=== PATIENT | female | born 1960 | race Caucasian/White ===

== ENCOUNTER 2023-10-13 15:53 | Emergency (ER) | payer MEDICARE, SELFPAY ==
[~2023-10-13 15:53] MED LIST: Calcium Chloride 1 GM/10 ML Abboject SYRINGE ONE; EPINEPHrine 1 MG/10 ML Abboject SYRINGE ONE; NOREPINEPHRINE ONE; NS ONE; Sodium Bicarb 50 MEQ/50 ML Abboject 8.4% SYRINGE ONE
[2023-10-13 16:15] LABS: INR-International Normal Ratio 1.9; Prothrombin Time 21.8 sec (12.0-14.7)
[2023-10-13 16:17] LABS: PTT 109.3 sec (22.9-36.1)
[2023-10-13 16:18] LABS: Base Excess-Venous -20.9 mmol/L (-2.0 to 3.0); Bicarbonate (HCO3v) 12.6 mmol/L (22.0-28.0); CO2 Tension (PvCO2) 72.6 mmHg (42.0-51.0); Calcium, Ionized 1.16 mmol/L (1.15-1.33); Chloride 108 mmol/L (98-107); Hemoglobin - Calc 9.7 g/dL (12.0-16.0); Potassium 3.2 mmol/L (3.5-5.1); Sodium 140 mmol/L (138-145); T. Carbon Dioxide 14.8 mmol/L (22.0-28.0); vO2 Saturation-calc 92.5 % (60.0-85.0)
[2023-10-13 16:21] LABS: #Lymphocytes 3.8 thou/uL (1.20-3.40); #Neutrophils 3.2 thou/uL (1.40-6.50); %Basophils 1.7 % (0.0-1.0); %Eosinophils 1.6 % (0.0-10.0); %Lymphocytes 50.7 % (21.0-51.0); %Monocytes 3.4 % (0.0-10.0); %Neutrophils 42.6 % (42.0-75.0); Hematocrit 31.2 % (36.0-47.0); Hemoglobin 9.6 g/dL (12.0-16.0); Manual Diff?? NO; Mean Corpuscular HGB CONC 30.9 g/dL (32.0-36.0); Mean Corpuscular Hemoglobin 32.3 pg (27.0-31.0); Mean Platelet Volume 9.7 fL (7.4-10.4); Platelet Count 46 10x3/uL (130-400); RBC Distribution Width 15.1 % (11.5-14.5); Red Blood Cell (RBC) Count 2.98 mill/uL (4.20-5.40); White Blood Cell (WBC) Count 7.5 10x3/uL (4.8-10.8)
[2023-10-13 16:22] LABS: #Basophils 0.1 thou/uL (0.0-0.2); #Eosinphils 0.1 thou/uL (0.0-0.7); #Monocytes 0.3 thou/uL (0.11-0.59); ALT (SGPT) 194 U/L (8-55); AST (SGOT) 198 U/L (5-34); Albumin 2.6 g/dL (3.4-4.8); Alkaline Phosphatase 81 U/L (40-110); Anion Gap 24 mmol/L (10-20); BUN (Urea Nitrogen) 18 mg/dL (9.8-20.1); Bilirubin, Total 0.6 mg/dL (0.2-1.2); Calc. Creatinine Clearance 0 mL/min (70-130); Calcium 8.4 mg/dL (7.8-10.44); Carbon Dioxide 11 mmol/L (23-31); Chloride 106 mmol/L (98-107); Estimated GFR 43; Globulin 1.6 g/dL (2.4-3.5); Glucose 259 mg/dL (80-115); Potassium 3.4 mmol/L (3.5-5.1); Protein, Total 4.2 g/dL (5.8-8.1); Sodium 138 mmol/L (136-145)
[2023-10-13 16:26] LABS: Troponin I 0.393 ng/mL (< 0.028)
== END 2023-10-13 17:03 | disposition short-term general hospital (02) ==
LOC: NAV ERS 15:53 → EDBD 15:53 → NAV ERS 17:03
DX: I46.9 Cardiac arrest, cause unspecified (principal); I47.20 Ventricular tachycardia, unspecified
CPT/HCPCS: 36415; 36556; 51702; 71045; 80053; 82330; 82803; 83605; 84484; 85025; 85610; 85730; J0171